=== PATIENT | female | born 1970 | race Caucasian/White ===

== ENCOUNTER 2019-03-23 15:14 | Emergency (ER) | payer MEDICARE, OTHER ==
[~2019-03-23] VITALS: Ht 167.6 cm; Wt 54.4 kg
[2019-03-23 15:28] VITALS: BP 153/93
[2019-03-23] MEDS ORDERED: KETOROLAC TROMETH 60MG/2ML VIAL IM ONE (15:45)
[2019-03-23] MEDS ORDERED: cefTRIAXone SOD 1,000 MG VL IM ONE (15:45)
[2019-03-23] MEDS ORDERED: CLINDAMYCIN 600 MG/4 ML VL IM ONE (15:45)
== END 2019-03-23 18:31 | disposition home or self-care (01) ==
LOC: ER 15:20
DX: L03.211 Cellulitis of face (principal); J45.909 Unspecified asthma, uncomplicated; I10 Essential (primary) hypertension; Z90.49 Acquired absence of other specified parts of digestive tract; Z90.89 Acquired absence of other organs
CPT/HCPCS: 96372; 99283; J0696; J1885

== ENCOUNTER 2019-03-28 20:26 | Emergency (ER) | payer MEDICARE ==
[~2019-03-28] VITALS: Ht 167.6 cm; Wt 55.3 kg
[2019-03-28] MEDS ORDERED: ONDANSETRON HCL 4 MG/2 ML VIAL IV ONE (22:00)
[2019-03-28] MEDS ORDERED: LORazepam 2MG/ML-1ML VIAL IV ONE (22:00)
[2019-03-28 22:52] LABS: Basophils # (auto) 0.1 uL; Basophils % (auto) 0.6 % (0.0-2.0); Eosinophils # (auto) 0 uL; Eosinophils % (auto) 0.4 % (0.0-7.0); Hematocrit 37.4 % (36.0-46.0); Hemoglobin 12.7 g/dL (12.2-16.2); Lymphocytes # (auto) 1.1 uL; Lymphocytes % (auto) 12.6 % (10.0-50.0); Mean Corpuscular Hemoglobin 28.3 pg (28.0-32.0); Mean Corpuscular Volume 83.3 fL (80.0-100.0); Monocytes # (auto) 0.3 uL; Monocytes % (auto) 3.2 % (0.0-12.0); Neutrophils # (auto) 7.2 uL; Neutrophils % (auto) 83.2 % (37.0-80.0); Platelet Count (auto) 286 10^3/uL (140-450); Red Blood Cells 4.49 10^6/uL (4.0-5.20); Red Cell Distribution Width 15.3 % (11.8-14.3); White Blood Cell 8.6 10^3/uL (4.4-10.8)
[2019-03-28 23:18] LABS: Albumin 3.7 g/dL (3.4-5.0); BUN/Creatinine Ratio 12.9; Calcium 8.9 mg/dL (8.5-10.1); Magnesium 2.1 mg/dL (1.6-2.6); Potassium 3.8 mmol/L (3.5-5.1)
[2019-03-28 23:33] LABS: Bilirubin, Total 0.2 mg/dL (0.2-1.0); Total Protein 7.3 g/dL (6.4-8.2)
[2019-03-29] MEDS ORDERED: SODIUM CHLORIDE 0.9% 1,000 ML IV ONE (02:15)
[2019-03-29 03:25] LABS: Urine Amorphous Crystal FEW /hpf (None Seen); Urine Bacteria MOD /hpf (None Seen); Urine Blood Negative /uL (Negative); Urine Mucus FEW (None Seen); Urine Specific Gravity 1.009 (1.001-1.035); Urine WBC 2 /hpf (0 - 5)
[2019-03-29 03:30] LABS: Alcohol, Urine < 3.0 mg/dL (0-5); Amphetamine Screen, Urine NEGATIVE (NEGATIVE); Barbiturate Scree,Urine NEGATIVE (NEGATIVE); Benzodiazephine Screen, Urine NEGATIVE (NEGATIVE); Cannabinoid Screen, Urine NEGATIVE (NEGATIVE); Cocaine Screen, Urine NEGATIVE (NEGATIVE); Opiate Scree,Urine NEGATIVE (NEGATIVE); Phencyclidine Screen, Urine NEGATIVE (NEGATIVE)
[2019-03-29] MEDS ORDERED: HYDROcodone-ACET 5/325MG TAB PO ONE (10:45)
[2019-03-29] MEDS ORDERED: LORazepam 2MG/ML-1ML VIAL ONE (14:48)
[2019-03-29] MEDS ORDERED: cefTRIAXone SOD 1,000 MG VL ONE (14:49)
[2019-03-29] MEDS ORDERED: cefTRIAXone 1GM/50ML D5W 50 ML IV ONE (15:00)
[2019-03-29] MEDS ORDERED: LORazepam 2MG/ML-1ML VIAL IV ONE (15:00)
[2019-03-29] MEDS ORDERED: IBUPROFEN 600 MG TAB PO ONE (16:45)
[2019-03-29] MEDS ORDERED: LORazepam 0.5 MG TAB PO PRN (18:15)
[2019-03-29] MEDS ORDERED: LORazepam 2MG/ML-1ML VIAL IM ONE (19:30)
[2019-03-29] MEDS ORDERED: AMOXICILLIN/CLAVUL 875 MG TAB PO SCH (22:00)
[2019-03-29] MEDS ORDERED: VENLAFAXINE HCL 25MG TABLET PO SCH (22:00)
[2019-03-29 23:35] VITALS: BP 144/86
== END 2019-03-29 23:57 | disposition short-term general hospital (02) ==
LOC: EDUNIT# 20:26 → EDBD 20:26 → ER 20:26
DX: F23 Brief psychotic disorder (principal); F41.9 Anxiety disorder, unspecified; J44.9 Chronic obstructive pulmonary disease, unspecified; F17.210 Nicotine dependence, cigarettes, uncomplicated; I10 Essential (primary) hypertension; Z88.2 Allergy status to sulfonamides; Z88.8 Allergy status to other drugs, medicaments and biological substances; Z98.890 Other specified postprocedural states
CPT/HCPCS: 36415; 71045; 80053; 80307; 80320; 81001; 81025; 83735; 84484; 85025; 93005; 94761; 96365; 96372; 96375; 96376; 99285; J0696; J2060; J2405; J7030